=== PATIENT | female | born 1985 | race American Indian/Alaskan Native ===

== ENCOUNTER 2016-05-03 18:22 | Emergency (ER) | payer MEDICAID ==
[2016-05-03 18:22] VITALS: BMI 39.6
[2016-05-03] MEDS ORDERED: Sodium Chloride 0.9% 1,000 ML IV ONE (20:47)
[2016-05-03] MEDS ORDERED: Sodium Chloride 0.9% 1,000 ML ONE (20:56)
[2016-05-03 21:01] LABS: BASO # 0.1 K/uL (0.0-0.2); BASO % 0.6 % (0.0-2.0); EOS # 0.1 K/uL (0.0-0.7); EOS % 1.1 % (0.0-4.0); HEMATOCRIT 36.6 % (34.0-47.0); LYMPH # 3.3 K/uL (1.0-4.3); LYMPH % 27.3 % (20.0-40.0); MEAN CELL VOLUME 83.2 fL (81.0-99.0); MEAN CORPUSCULAR HEMOGLOBIN 27.3 pg (27.0-31.0); MEAN CORPUSCULAR HGB CONC 32.8 g/dL (33.0-37.0); MEAN PLATELET VOLUME 10.3 fL (7.2-11.7); MONO # 0.9 K/uL (0.0-0.8); MONO % 7.4 % (0.0-10.0); NRBC % 0.1 % (0.0-2.0); RED CELL DISTRIBUTION WIDTH 14.6 % (11.5-14.5)
[2016-05-03 21:05] LABS: RBC URINE < 1 /hpf (0-3); URINE BILIRUBIN NEGATIVE (NEGATIVE); URINE BLOOD NEGATIVE (NEGATIVE); URINE COLOR Yellow (YELLOW); URINE GLUCOSE (UA) NORMAL (Normal); URINE KETONE NEGATIVE (NEGATIVE); URINE LEUKOCYTE ESTERASE NEG Leu/uL (Negative); URINE PROTEIN NEGATIVE (NEGATIVE); WBC URINE < 1 /hpf (0-5)
[2016-05-03 21:07] LABS: CHLORIDE 98 mmol/L (98-107); POTASSIUM 3.7 mmol/L (3.6-5.2); SODIUM 137 mmol/L (132-148)
[2016-05-03 21:10] LABS: ALB/GLOB RATIO 1.1 (1.0-2.1); ALKALINE PHOSPHATASE 45 U/L (38-126); ALT/SGPT 16 U/L (9-52); AST/SGOT 18 U/L (14-36); BILIRUBIN,TOTAL 0.3 mg/dL (0.2-1.3); BLOOD UREA NITROGEN 14 mg/dL (7-17); CALCIUM 8.3 mg/dl (8.6-10.4); CARBON DIOXIDE 24 mmol/L (22-30); GFR AFRICAN-AMERICAN > 60; GLUCOSE,RANDOM 89 mg/dL (65-105); TOTAL PROTEIN 7.6 g/dL (6.3-8.3)
[2016-05-03 23:17] VITALS: BP 116/84; PULSE 69; RESP 22; TEMP 98; O2SAT 99
[2016-05-03] MEDS ORDERED: Iohexol 240 (50 ml) PO STA (23:25)
[2016-05-03] MEDS ORDERED: Iohexol 240 (50 ml) ONE (23:32)
[2016-05-03] MEDS ORDERED: Morphine 4 MG/ML VIAL ONE (23:32)
--- NOTE | 2016-05-03 23:54 | C.PDOC ---
Time Seen by Provider: 05/03/16 20:26 Chief Complaint (Nursing): Abdominal Pain History Per: Patient Onset/Duration Of Symptoms: Days, Intermittent Episodes Current Symptoms Are (Timing): Still Present Severity: Moderate Location Of Pain/Discomfort: Other (Left mid abdomen) Radiation Of Pain To:: Flank Quality Of Discomfort: "Pain" Alleviating Factors: None Additional History Per: Prior Records Abnormal Vaginal Bleeding: No Past Medical History Reviewed: Historical Data, Nursing Documentation, Vital Signs Vital Signs: Last Vital Signs Temp 98 F 05/03/16 23:16 Pulse 69 05/03/16 23:16 Resp 22 05/03/16 23:16 BP 116/84 05/03/16 23:16 Pulse Ox 99 05/03/16 23:16 - Medical History PMH: Hypercholesterolemia Surgical History: No Surg Hx - [facility] Procedures CLOSURE SKIN & SUBCUTANEOUS NEC (12/13/13) EXTRACTION OF POC, LOW CERVICAL, OPEN APPROACH (06/04/15) OCCLUSION OF BILATERAL FALLOPIAN TUBES, OPEN APPROACH (06/04/15) TETANUS TOXOID ADMINIST (12/13/13) Family History: States: Unknown Family Hx - Social History Hx Tobacco Use: No Hx Alcohol Use: No Hx Substance Use: No - Immunization History Hx Tetanus Toxoid Vaccination: No Hx Influenza Vaccination: No Hx Pneumococcal Vaccination: No Review Of Systems Except As Marked, All Systems Reviewed And Found Negative. Constitutional: Negative for: Fever, Weakness Cardiovascular: Negative for: Chest Pain Respiratory: Negative for: Shortness of Breath Gastrointestinal: Positive for: Abdominal Pain. Negative for: Vomiting, Diarrhea, Melena, Hematochezia, Hematemesis, Rectal Pain Genitourinary: Negative for: Dysuria, Vaginal Discharge, Vaginal Bleeding, Pelvic Pain Musculoskeletal: Negative for: Neck Pain, Back Pain Skin: Negative for: Rash Neurological: Negative for: Weakness, Numbness, Seizures, Altered Mental Status Physical Exam - Physical Exam Appears: Non-toxic, No Acute Distress Skin: Normal Color, Warm, Dry, No Rash Head: Atraumatic, Normacephalic Eye(s): bilateral: PERRL, EOMI Neck: Normal ROM, Supple Cardiovascular: Rhythm Regular Respiratory: Normal Breath Sounds, No Accessory Muscle Use Gastrointestinal/Abdominal: Soft, Tenderness (left flank area), No Guarding, No Rebound Back: No CVA Tenderness Extremity: Normal ROM Neurological/Psych: Oriented x3, Normal Motor, Normal Sensation ED Course And Treatment - Laboratory Results Result Diagrams: 05/03/16 20:54 05/03/16 20:54 Lab Interpretation: No Acute Changes Urine POC: Negative O2 Sat by Pulse Oximetry: 99 Pulse Ox Interpretation: Normal Progress Note: Pt feels a little better, but still has the pain. I wanted to order a CT scan of abdomen/pelvis, but pt refused. She wants to go home right now. Progress - Interventions Interventions:: Observation, Intravenous fluid - Medications Administered Intravenous: NSAID - Data Reviewed Data Reviewed: Lab, Old records - Patient Status Patient status: Partially improved - Continuity of Care Discussed patient case with:: Patient, ED Nurse - Patient Plan Patient Plan: Discharge, F/U with PCP Disposition Counseled Patient/Family Regarding: Studies Performed, Diagnosis, Need For Followup, Rx Given - Disposition Referrals: Shaun Monae MD [Staff Provider] - Disposition: HOME/ ROUTINE Disposition Time: 23:57 Condition: STABLE Additional Instructions: Follow up with your doctor this week. Follow up with a Lead Janitor for further evaluation and treatment, including possible colonoscopy. Return to the ER if you develop fever, vomiting, bloody stools, trouble urinating, worsening of symptoms or if you have any other concerns. Prescriptions: Polyethylene Glycol 3350 [Miralax] 17 gm PO DAILY #7 packet Instructions: Flank Pain (ED) Print Language: MEXICAN - Clinical Impression Clinical Impression: Left flank pain
--- NOTE | 2016-05-04 11:15 | RAD ---
HISTORY: Left sided abdominal pain COMPARISON: No prior. FINDINGS: BOWEL: There is moderate amount of stool scattered in the colon. There is nonobstructive bowel gas pattern. BONES: Normal. OTHER FINDINGS: There are no pathologic soft tissue calcifications. There are multiple phleboliths in the pelvis. IMPRESSION: Constipation. Nonobstructive bowel gas pattern.
== END 2016-05-04 | disposition home or self-care (01) ==
LOC: C.ER 18:22
DX: R10.9 Unspecified abdominal pain (principal)
CPT/HCPCS: 74000; 80053; 81001; 83690; 84703; 85025; 96361; 96374; 99285; J1885; J7040

== ENCOUNTER 2016-08-27 14:18 | Inpatient (IN) | payer MEDICAID ==
[2016-08-27 14:19] VITALS: BMI 39.6
[2016-08-27] MEDS ORDERED: Sodium Chloride 0.9% 1,000 ML IV ONE ×2 (14:41→18:51)
[2016-08-27] MEDS ORDERED: HYDROmorphone 0.5 mg/0.5 ml ISec IVP STA (14:43)
--- NOTE | 2016-08-27 14:43 | C.PDOC ---
History Of Present Illness <Artie Sims - Last Filed: 08/27/16 23:04> <Juni Gusman Jr. - Last Filed: 08/29/16 15:25> Patient is a 30-year-old female, PMHx includes Eczema, presents to the emergency department with complaints of abdominal pain. Patient states she has been experiencing generalized abdominal pain, greater in right-upper quadrant, for the past several weeks. Pain is worse with eating, intermittent in nature, and sometimes radiates to back. Patient notes that she was seen in [facility] Emergency Dept two days ago, where she had both a CT scan and Ultrasound, which was "normal." Patient was discharged with Rx for Pepcid, that she has been taking with minimal relief. Patient reports one episode of non- bilious/non-bloody vomiting. States her pain has persisted, resulting in her coming to the ED for further evaluation. Denies fevers, diarrhea, dizziness, vaginal bleeding/discharge, hematuria, dysuria, headache, or any other associated symptoms. No other complaints at this time. PMD Wilbert May MD. (Juni Gusman Jr.) <Artie Sims - Last Filed: 08/27/16 23:04> History Per: Patient History/Exam Limitations: no limitations Onset/Duration Of Symptoms: Days Current Symptoms Are (Timing): Still Present Severity: Moderate Pain Scale Rating Of: 7 Location Of Pain/Discomfort: Diffuse, RUQ Radiation Of Pain To:: Back Associated Symptoms: Vomiting Exacerbating Factors: Other (Eating) <Juni Gusman Jr. - Last Filed: 08/29/16 15:25> Time Seen by Provider: 08/27/16 14:31 Chief Complaint (Nursing): Abdominal Pain Past Medical History Reviewed: Historical Data, Nursing Documentation, Vital Signs - Medical History PMH: Hypercholesterolemia Other PMH: Eczema Family History: States: CAD, Diabetes - Social History Hx Tobacco Use: No Hx Alcohol Use: Yes (Occaisonal, social.) Hx Substance Use: No - Immunization History Hx Tetanus Toxoid Vaccination: No Hx Influenza Vaccination: No Hx Pneumococcal Vaccination: No <Juni Gusman Jr. - Last Filed: 08/29/16 15:25> Vital Signs: Last Vital Signs Temp 97 F L 08/29/16 08:00 Pulse 59 L 07/24/17 08:00 Resp 20 08/29/16 08:00 BP 123/84 08/29/16 08:00 Pulse Ox 99 08/29/16 00:00 - [facility] Procedures CLOSURE SKIN & SUBCUTANEOUS NEC (12/13/13) EXTRACTION OF POC, LOW CERVICAL, OPEN APPROACH (06/04/15) OCCLUSION OF BILATERAL FALLOPIAN TUBES, OPEN APPROACH (06/04/15) TETANUS TOXOID ADMINIST (12/13/13) Review Of Systems Except As Marked, All Systems Reviewed And Found Negative. Constitutional: Negative for: Fever Cardiovascular: Negative for: Chest Pain Respiratory: Negative for: Cough, Shortness of Breath Gastrointestinal: Positive for: Vomiting, Abdominal Pain. Negative for: Diarrhea, Constipation Genitourinary: Negative for: Dysuria, Frequency, Hematuria, Vaginal Discharge, Vaginal Bleeding Neurological: Negative for: Weakness, Numbness, Headache, Dizziness <Juni Gusman Jr. - Last Filed: 08/29/16 15:25> Physical Exam - Physical Exam Appears: Non-toxic, No Acute Distress Skin: Warm, Dry, No Rash Head: Atraumatic, Normacephalic Eye(s): bilateral: Normal Inspection, EOMI Ear(s): Bilateral: Normal Nose: Normal Oral Mucosa: Moist Lips: Normal Appearing Teeth: Normal Dentition Throat: Normal Neck: Normal ROM Lymphatic: Deferred Cardiovascular: Rhythm Regular, No Murmur Respiratory: Normal Breath Sounds, No Accessory Muscle Use Gastrointestinal/Abdominal: Bowel Sounds, Soft, Tenderness (LUQ>RUQ, Epigastric , mild.), No Guarding, No Rebound Extremity: Normal ROM Neurological/Psych: Oriented x3, Normal Speech <Juni Gusman Jr. - Last Filed: 08/29/16 15:25> ED Course And Treatment - Laboratory Results Result Diagrams: 08/27/16 14:54 08/27/16 14:54 <Artie Sims - Last Filed: 08/27/16 23:04> - Laboratory Results Result Diagrams: 08/29/16 11:38 08/29/16 11:38 O2 Sat by Pulse Oximetry: 98 <Juni Gusman Jr. - Last Filed: 08/29/16 15:25> Medical Decision Making <Artie Sims - Last Filed: 08/27/16 23:04> <Juni Gusman Jr. - Last Filed: 08/29/16 15:25> Medical Decision Making: pt endorsed to me pending reassessment s/p zofran, analgesia. upon reassessment , pt reports persistent symptoms. pt does not feel well to go home. pt with diffuse ttp. ct added. ct shows no acute disease. case discussed with dr dwyer. accepts as obs (Artie Sims) Impression Undifferentiated Abdominal Pain Diff Dx (includes but not limited to) Peptic Ulcer Disease vs Gall Stones vs GERD vs Food Allergy Plan: * CMP, Lipase * CBC * Dilaudid, pepcid, IVF * HCG, UA * Reassess and Disposition Progress: 6:52 PM - Patient very nauseous and with vomiting after dilaudid. Just gave additional dose of Zofran. Because pt is still symptomatic, will place in Observation status for now until symptoms improve. Will also give additional IV fluids. (Juni Gusman Jr.) ED OBSERVATION <Artie Sims - Last Filed: 08/27/16 23:04> Date of observation admission: 08/27/16 Time of observation admission: 18:53 <Juni Gusman Jr. - Last Filed: 08/29/16 15:25> - Observation admission statement Patient is being placed in observation because:: Pt is vomiting and symptomatic. Will give iv fluids and more Zofran (Juni Gusman Jr.) - Goals of Observation Goals of observation are:: Improvement of symptoms (Juni Gusman Jr.) Disposition - Disposition Disposition Time: 23:04 <Artie Sims - Last Filed: 08/27/16 23:04> <Juni Gusman Jr. - Last Filed: 08/29/16 15:25> - Disposition Disposition: HOME/ ROUTINE Condition: STABLE - Clinical Impression Clinical Impression: Intractable vomiting, Abdominal pain <Artie Sims - Last Filed: 08/27/16 23:04> - Scribe Statement The provider has reviewed the documentation as recorded by the Scribe (Noreen Hogue) <Juni Gusman Jr. - Last Filed: 08/29/16 15:25> - Scribe Statement All medical record entries made by the Scribe were at my direction and personally dictated by me. I have reviewed the chart and agree that the record accurately reflects my personal performance of the history, physical exam, medical decision making, and the department course for this patient. I have also personally directed, reviewed, and agree with the discharge instructions and disposition. (Juni Gusman Jr.) Physician Patient Turnover Patient Signed Over To: Artie Sims Handoff Comments: To Reassess patients after fluids and IV zofran and d/c home if feeling better. <Juni Gusman Jr. - Last Filed: 08/29/16 15:25> Decision To Admit - Pt Status Changed To: Hospital Disposition Of: Observation - . Bed Request Type: Regular Admitting Physician: Glenn Dwyer <Artie Sims - Last Filed: 08/27/16 23:04> <Juni Gusman Jr. - Last Filed: 08/29/16 15:25> - . Patient Diagnosis: Intractable vomiting, Abdominal pain
[2016-08-27] MEDS ORDERED: Sodium Chloride 0.9% 1,000 ML ONE (14:58)
[2016-08-27 15:01] LABS: BASO # 0.1 K/uL (0.0-0.2); EOS # 0.1 K/uL (0.0-0.7); EOS % 1.4 % (0.0-4.0); HEMATOCRIT 36.5 % (34.0-47.0); LYMPH # 2.7 K/uL (1.0-4.3); LYMPH % 29.1 % (20.0-40.0); MEAN CELL VOLUME 83.4 fL (81.0-99.0); MEAN CORPUSCULAR HEMOGLOBIN 26.9 pg (27.0-31.0); MEAN CORPUSCULAR HGB CONC 32.3 g/dL (33.0-37.0); MEAN PLATELET VOLUME 9.4 fL (7.2-11.7); MONO # 0.7 K/uL (0.0-0.8); MONO % 7.6 % (0.0-10.0); NRBC % 0.1 % (0.0-2.0); RED CELL DISTRIBUTION WIDTH 14.2 % (11.5-14.5); WHITE BLOOD COUNT 9.3 K/uL (4.8-10.8)
[2016-08-27 15:08] LABS: CHLORIDE 100 mmol/L (98-107); POTASSIUM 3.8 mmol/L (3.6-5.2); SODIUM 138 mmol/L (132-148)
[2016-08-27 15:10] LABS: BILIRUBIN,TOTAL 0.4 mg/dL (0.2-1.3); CARBON DIOXIDE 29 mmol/L (22-30); GFR AFRICAN-AMERICAN > 60
[2016-08-27 15:11] LABS: ALKALINE PHOSPHATASE 49 U/L (38-126); ALT/SGPT 22 U/L (9-52); AST/SGOT 19 U/L (14-36); BLOOD UREA NITROGEN 11 mg/dL (7-17); CALCIUM 8.3 mg/dl (8.6-10.4); GLUCOSE,RANDOM 90 mg/dL (65-105); TOTAL PROTEIN 7.5 g/dL (6.3-8.3)
[2016-08-27] MEDS ORDERED: Sucralfate 1 gm/10 ml Oral Susp UD PO STA (15:36)
[2016-08-27] MEDS ORDERED: Sucralfate 1 gm/10 ml Oral Susp UD ONE (15:43)
[2016-08-27 15:59] LABS: RBC URINE < 1 /hpf (0-3); URINE BILIRUBIN NEGATIVE (NEGATIVE); URINE BLOOD NEGATIVE (NEGATIVE); URINE COLOR Straw (YELLOW); URINE GLUCOSE (UA) NORMAL (Normal); URINE KETONE NEGATIVE (NEGATIVE); URINE LEUKOCYTE ESTERASE NEG Leu/uL (Negative); URINE PROTEIN NEGATIVE (NEGATIVE); URINE UROBILINOGEN NORMAL mg/dL (0.2-1.0); WBC URINE < 1 /hpf (0-5)
[2016-08-27] MEDS ORDERED: HYDROmorphone 1 mg/ml ISec IVP STA (16:12)
[2016-08-27] MEDS ORDERED: Iodixanol 320 MG/ML 100 ML BOTTLE IV ONE (20:35)
[2016-08-27] MEDS ORDERED: Aluminum Hydroxide/Magnesium Hydroxide Susp (30 mL) PO STA (20:55)
[2016-08-27] MEDS ORDERED: Aluminum Hydroxide/Magnesium Hydroxide Susp (30 mL) ONE (21:46)
--- NOTE | 2016-08-27 22:27 | CT ---
EXAM: CT Abdomen and Pelvis With Intravenous Contrast CLINICAL HISTORY: 30 years old, female; Pain; Abdominal pain; Generalized; Additional info: Abd pain TECHNIQUE: Axial computed tomography images of the abdomen and pelvis with intravenous contrast. This CT exam was performed using one or more of the following dose reduction techniques: automated exposure control, adjustment of the mA and/or kV according to patient size, and/or use of iterative reconstruction technique. Coronal reformatted images were created and reviewed. CONTRAST: 100 mL of visipaque administered intravenously. COMPARISON: CT - ABD PELVIS IV CONTRAST ONLY 01/12/2016 2:22:50 AM FINDINGS: Lower thorax: Small hiatal hernia. ABDOMEN: Liver: Hepatomegaly. Gallbladder and bile ducts: Unremarkable. No calcified stones. No ductal dilation. Pancreas: Unremarkable. No mass. No ductal dilation. Spleen: Unremarkable. No splenomegaly. Adrenals: Unremarkable. No mass. Kidneys and ureters: Unremarkable. No solid mass. No hydronephrosis. Stomach and bowel: Unremarkable. No obstruction. Appendix: No findings to suggest acute appendicitis. PELVIS: Bladder: Unremarkable. No mass. Reproductive: Unremarkable as visualized. ABDOMEN and PELVIS: Intraperitoneal space: Trace free fluid in pelvis. No free air. Bones/joints: No acute fracture. No dislocation. Soft tissues: Unremarkable. Vasculature: Unremarkable. No abdominal aortic aneurysm. Lymph nodes: Unremarkable. No enlarged lymph nodes. IMPRESSION: 1. Trace fluid in pelvis. 2. Small hiatal hernia. 3. Hepatomegaly. 4. Remainder of findings as above.
[2016-08-27] MEDS: Dextrose 5%/0.45% NS 1,000 ML IV SCH (23:26)
[2016-08-28 18:23] LABS: AMYLASE 55 U/L (30-110)
[2016-08-28] MEDS: Dextrose 5%/0.45% NS 1,000 ML IV SCH (19:50)
--- NOTE | 2016-08-29 02:28 | HP ---
HISTORY OF PRESENT ILLNESS: The patient is 30-year-old female has chief complaints of weakness, fatigue, tiredness, nausea, vomiting, and abdominal pain. The patient came to the ER, advised admission. PHYSICAL EXAMINATION: GENERAL: The patient is awake, alert, and oriented. VITAL SIGNS: Temperature 98, pulse 90. HEENT: Within normal limits. NECK: Supple. CHEST: Symmetrical. HEART: Regular. ABDOMEN: Soft. EXTREMITIES: No edema. IMPRESSION AND PLAN: History of gastritis, peptic ulcer disease. The patient on bedrest, supportive care. Glenn Dwyer MD
[2016-08-29 11:56] LABS: BASO # 0.1 K/uL (0.0-0.2); BASO % 0.8 % (0.0-2.0); EOS # 0.1 K/uL (0.0-0.7); EOS % 1.3 % (0.0-4.0); HEMATOCRIT 35.7 % (34.0-47.0); LYMPH # 2.4 K/uL (1.0-4.3); LYMPH % 31.7 % (20.0-40.0); MEAN CELL VOLUME 82.4 fL (81.0-99.0); MEAN CORPUSCULAR HEMOGLOBIN 27.1 pg (27.0-31.0); MEAN CORPUSCULAR HGB CONC 32.9 g/dL (33.0-37.0); MEAN PLATELET VOLUME 9.2 fL (7.2-11.7); MONO # 0.6 K/uL (0.0-0.8); RED CELL DISTRIBUTION WIDTH 14.4 % (11.5-14.5); WHITE BLOOD COUNT 7.7 K/uL (4.8-10.8)
[2016-08-29 12:14] LABS: CHLORIDE 102 mmol/L (98-107); SODIUM 140 mmol/L (132-148)
[2016-08-29 12:15] LABS: POTASSIUM 3.9 mmol/L (3.6-5.2)
[2016-08-29 12:17] LABS: ALKALINE PHOSPHATASE 44 U/L (38-126); ALT/SGPT 20 U/L (9-52); AST/SGOT 18 U/L (14-36); BILIRUBIN,TOTAL 0.5 mg/dL (0.2-1.3); BLOOD UREA NITROGEN 6 mg/dL (7-17); CALCIUM 8.3 mg/dl (8.6-10.4); CARBON DIOXIDE 27 mmol/L (22-30); GFR AFRICAN-AMERICAN > 60; GLUCOSE,RANDOM 85 mg/dL (65-105); TOTAL PROTEIN 6.9 g/dL (6.3-8.3)
--- NOTE | 2016-08-29 13:55 | CP.PCM.PN ---
Subjective - Date & Time of Evaluation Date of Evaluation: 08/29/16 Time of Evaluation: 13:52 - Subjective Subjective: PGY [address] Dwyer 30 year old female with past medical history of glucose intolerance and HLD is admitted for intractable epigastric pain, N/V. Pt is seen and examined at bedside. No acute events overnight. Patient is still c/o of diffuse abd pain. She denies having any N/V. She is tolerating liquid diet. Patient denies having any CP, SOB, F/c. Patient states her last BM was 4 days ago. She normally has 1 BM daily. 12 point ROS are negative except for the above mentioned. Sx; C section NKDA Social: Denies ETOH, drug or tobacco use Objective - Vital Signs/Intake and Output Vital Signs (last 24 hours): Temp Pulse Resp BP Pulse Ox 97 F L 59 L 20 123/84 99 08/29/16 08:00 08/29/16 08:00 08/29/16 08:00 08/29/16 08:00 08/29/16 00:00 Intake and Output: 08/29/16 08/29/16 06:59 18:59 Intake Total 1340 Balance 1340 - Medications Medications: Current Medications Famotidine (Pepcid) 20 mg PO DAILY [facility] Dextrose/Sodium Chloride (Dextrose 5%/0.45% Ns 1000 Ml) 1,000 mls @ 50 mls/hr IV .Q20H [facility]ISA[facility] Last Admin: 08/28/16 19:50 Dose: 50 mls/hr Ondansetron HCl (Zofran Inj) 4 mg IVP Q6 PRN PRN Reason: Nausea/Vomiting Polyethylene Glycol (Miralax) 17 gm PO DAILY [facility] - Labs Labs: 08/29/16 11:38 08/29/16 11:38 - Constitutional Appears: Non-toxic, No Acute Distress - Head Exam Head Exam: ATRAUMATIC - Eye Exam Eye Exam: EOMI - ENT Exam ENT Exam: Mucous Membranes Moist - Respiratory Exam Respiratory Exam: Clear to Ausculation Bilateral, NORMAL BREATHING PATTERN. absent: Accessory Muscle Use, Rales, Rhonchi, Wheezes, Respiratory Distress - Cardiovascular Exam Cardiovascular Exam: REGULAR RHYTHM, +S1, +S2. absent: Gallop, Rubs, Murmur - GI/Abdominal Exam GI & Abdominal Exam: Soft, Normal Bowel Sounds. absent: Distended, Firm, Guarding, Rigid, Tenderness, Organomegaly - Extremities Exam Extremities Exam: absent: Pedal Edema, Tenderness - Neurological Exam Neurological Exam: Alert, Awake, Oriented x3 - Psychiatric Exam Psychiatric exam: Normal Affect, Normal Mood - Skin Skin Exam: Dry, Intact, Normal Color, Warm Assessment and Plan - Assessment and Plan (Free Text) Assessment: 30 year old female with past medical history of glucose intolerance and HLD is admitted for intractable abd pain. CT abd on admission showed trace fluid in pelvis, small hiatal hernia and hepatomegaly, no appendicitis. Intractable abd pain - Abd US ordered- F/U results - CLD- Will advance diet as tolerated - Pain management with Motrin prn - D5 at 50 cc Hepatomegal - Hepatitis panel is negative - will check lipid panel, hgb A1c Prophylaxis - Pepcid - SCDs Orders and management per Dr. Dwyer
--- NOTE | 2016-08-29 14:02 | US ---
HISTORY: epigastric pain COMPARISON: CT of the abdomen and pelvis with IV contrast performed 08/27/16 TECHNIQUE: Sonographic evaluation of the abdomen. FINDINGS: LIVER: Measures 20.0 cm in sagittal dimension. Echogenic focus within the right hepatic lobe measures approximately 0.7 x 0.6 x 0.6 cm, indeterminate, possibly small hemangioma. The main portal vein appears patent with normal directional flow. No intrahepatic bile duct dilatation. GALLBLADDER: No gallstones. No gallbladder wall thickening. Negative sonographic Schroeder's sign as assessed by the parachute marker. COMMON BILE DUCT: Measures 4 mm. PANCREAS: Not well visualized. RIGHT KIDNEY: Measures 10.6 x 4.2 x 5.2 cm. No obstructing calculus or hydronephrosis identified. LEFT KIDNEY: Measures 11.5 x 6.8 x 5.5 cm. No obstructing calculus or hydronephrosis identified. SPLEEN: Measures approximately 10.3 cm. AORTA: Limited views appear unremarkable. IVC: Limited views appear unremarkable. OTHER FINDINGS: None. IMPRESSION: Hepatomegaly. Echogenic focus within the right hepatic lobe measures approximately 0.7 x 0.6 x 0.6 cm, indeterminate, possibly small hemangioma. Cross-sectional imaging may be considered for further evaluation if indicated.
[2016-08-29] MEDS: POLYETHYLENE GLYCOL 3350 17 GM/Dose PACKET PO SCH (14:03)
[2016-08-29 14:58] LABS: INR 1.1
--- NOTE | 2016-08-29 15:05 | PN ---
DATE: LOCATION: [facility], bed B. SUBJECTIVE: This is a 30-year-old female seen for GI consultation initially on 08/28/2016, reexamined again today with less abdominal pain, but intermittent period of nausea and vomiting with dyspepsia and generalized weakness and malaise as well as recent change of bowel movement habit. CAT scan of the abdomen, results are seen. The entire chart is reviewed including, but not limited to the most recent lab and radiological results, current and previous medication list, current and previous medical events, and the patient's CBC today was normal with low BUN and low calcium of 8.3, but normal lipase and amylase level and normal liver function tests. Patient admitted sometimes alcohol intake, and as requested by myself, the hepatic profile was reported to be negative. PHYSICAL EXAMINATION: GENERAL: A 30 years old female. VITAL SIGNS: Afebrile with pulse 62, respiratory rate 18-20 with blood pressure of 118/80. HEENT: Showed mildly dry oral mucous membrane. Nonicteric sclerae. LUNGS: Clear. Breathing sounds are present bilaterally. HEART: Positive S1, S2. ABDOMEN: Soft, mildly obese with midepigastric as well as left and right lower quadrant tenderness. No mass or organomegaly. No rebound tenderness or guarding. RECTAL: The patient refused. EXTREMITIES: Without edema, clubbing or cyanosis. BACK: With evidence of eczema. NEUROLOGIC: No neurological deficits, sensory or motor. IMPRESSION: 1. Re-exacerbation of peptic ulcer disease, rule out gastric versus duodenal ulcer. 2. Hepatomegaly with unclear etiology, patient for ultrasound of the abdomen. That could be alcohol induced. 3. Known history of hyperlipidemia. 4. A strong family history of colon cancer including her grandmother. SUGGESTION: 1. Agree with your plan. 2. Reglan IV. 3. Patient for upper endoscopy at a.m. Further recommendations to follow. Pooja Schumacher MD
[2016-08-29] MEDS: Dextrose 5%/0.45% NS 1,000 ML IV SCH (15:53)
[2016-08-29 16:08] LABS: CHOLESTEROL 196 mg/dL (0-199)
[2016-08-30] MEDS: Dextrose 5%/0.45% NS 1,000 ML IV SCH (06:04)
[2016-08-30 06:53] LABS: BASO # 0.1 K/uL (0.0-0.2); BASO % 0.8 % (0.0-2.0); EOS # 0.1 K/uL (0.0-0.7); EOS % 1.5 % (0.0-4.0); HEMATOCRIT 37.2 % (34.0-47.0); LYMPH # 2.8 K/uL (1.0-4.3); LYMPH % 34.1 % (20.0-40.0); MEAN CELL VOLUME 82.5 fL (81.0-99.0); MEAN CORPUSCULAR HEMOGLOBIN 27.5 pg (27.0-31.0); MEAN CORPUSCULAR HGB CONC 33.3 g/dL (33.0-37.0); MEAN PLATELET VOLUME 9.6 fL (7.2-11.7); MONO # 0.7 K/uL (0.0-0.8); MONO % 8.1 % (0.0-10.0); NRBC % 0.1 % (0.0-2.0); RED CELL DISTRIBUTION WIDTH 14.2 % (11.5-14.5); WHITE BLOOD COUNT 8.3 K/uL (4.8-10.8)
[2016-08-30 07:01] LABS: ALKALINE PHOSPHATASE 44 U/L (38-126); ALT/SGPT 19 U/L (9-52); AST/SGOT 14 U/L (14-36); BILIRUBIN,TOTAL 0.5 mg/dL (0.2-1.3); BLOOD UREA NITROGEN 7 mg/dL (7-17); CALCIUM 8.2 mg/dl (8.6-10.4); CARBON DIOXIDE 27 mmol/L (22-30); CHLORIDE 102 mmol/L (98-107); GFR AFRICAN-AMERICAN > 60; GLUCOSE,RANDOM 92 mg/dL (65-105); POTASSIUM 3.8 mmol/L (3.6-5.2); SODIUM 142 mmol/L (132-148); TOTAL PROTEIN 6.8 g/dL (6.3-8.3)
[2016-08-30] MEDS ORDERED: Propofol 10 mg/ml Inj (20 ML) ONE (10:04)
[2016-08-30 10:31] VITALS: TEMP 97.8; O2SAT 100
[2016-08-30 11:00] VITALS: BP 136/86; PULSE 61; RESP 14
[2016-08-30] MEDS: POLYETHYLENE GLYCOL 3350 17 GM/Dose PACKET PO SCH (12:53)
--- NOTE | 2016-08-30 13:24 | CP.PCM.PN ---
Subjective - Date & Time of Evaluation Date of Evaluation: 08/30/16 Time of Evaluation: 13:15 - Subjective Subjective: PGY3 Medicine Note for Dr. Dwyer: Patient seen and examined at bedside s/p endoscopy this AM. P atient reports persistent abdominal pain. Patient denies nausea and vomiting today or yesterday. Patient tolerating full liquid diet. Objective - Vital Signs/Intake and Output Vital Signs (last 24 hours): Temp Pulse Resp BP Pulse Ox 97.8 F 61 14 136/86 100 08/30/16 10:38 08/30/16 10:38 08/30/16 10:38 08/30/16 10:38 08/30/16 10:38 Intake and Output: 08/30/16 08/30/16 06:59 18:59 Intake Total 1100 525 Balance 1100 525 - Medications Medications: Current Medications Belladonna/Phenobarbital () 1 tab PO TID [facility] Famotidine (Pepcid) 20 mg PO DAILY [facility] Last Admin: 08/30/16 12:54 Dose: Not Given Dextrose/Sodium Chloride (Dextrose 5%/0.45% Ns 1000 Ml) 1,000 mls @ 50 mls/hr IV .Q20H [facility] Last Admin: 08/30/16 06:04 Dose: 50 mls/hr Ibuprofen (Motrin Tab) 600 mg PO TID [facility] Last Admin: 08/30/16 12:53 Dose: Not Given Ondansetron HCl (Zofran Inj) 4 mg IVP Q6 PRN PRN Reason: Nausea/Vomiting Polyethylene Glycol (Miralax) 17 gm PO DAILY [facility] Last Admin: 08/30/16 12:53 Dose: Not Given Sucralfate (Carafate Tab) 1 gm PO ACBHS [facility] - Labs Labs: 08/30/16 06:32 08/30/16 06:32 PT 12.4 SECONDS (9.7-12.2) H 08/29/16 14:34 INR 1.1 08/29/16 14:34 APTT 34 SECONDS (21-34) 08/29/16 14:34 - Constitutional Appears: Non-toxic, No Acute Distress - Head Exam Head Exam: NORMAL INSPECTION - Eye Exam Eye Exam: EOMI - ENT Exam ENT Exam: Mucous Membranes Moist - Respiratory Exam Respiratory Exam: Clear to Ausculation Bilateral, NORMAL BREATHING PATTERN. absent: Rales, Rhonchi, Wheezes - Cardiovascular Exam Cardiovascular Exam: REGULAR RHYTHM, +S1, +S2. absent: Gallop, Rubs, Murmur - GI/Abdominal Exam GI & Abdominal Exam: Guarding, Soft, Tenderness, Normal Bowel Sounds - Extremities Exam Extremities Exam: absent: Pedal Edema - Neurological Exam Neurological Exam: Alert, Awake, Oriented x3 - Psychiatric Exam Psychiatric exam: Normal Affect, Normal Mood - Skin Skin Exam: Normal Color, Warm Assessment and Plan - Assessment and Plan (Free Text) Assessment: 30 year old female with past medical history of glucose intolerance and HLD is admitted for intractable abd pain. CT abd on admission showed trace fluid in pelvis, small hiatal hernia and hepatomegaly, no appendicitis. Intractable abd pain - Abd US ordered- hepatomegaly; echogenic focus within right hepatic lobe 0.7x0.6x0.6cm which is possibly a hemangioma (please see full report) - f/u outpatient - Endoscopy today - acute gastritis - CLD- Will advance diet as tolerated - Pain management with Motrin prn - D5 at 50 cc Hepatomegaly - Hepatitis panel is negative - Triglycerides 202, Cholesterol 196, LDL 113, HDL 35 - HgbA1C 5.9 - f/u outpatient for IGT Prophylaxis - Pepcid - SCDs Orders and management per Dr. Dwyer Patient discharged today: Patient to be discharged home per Dr. Dwyer. Patient should take medications as directed below. Patient should make an appointment and follow up with PMD and with GI specialist, Dr. Sanz, within one week. Patient should return to ED immediately if symptoms return or worsen. Medications: 1 tab by mouth three times a day #90 Protonix 40mg one tab by mouth daily #30 Sucralfate 1gm 1 tab by mouth before breakfast and sleep #60 Colace 100mg 1 tab by mouth twice a day #60
[2016-08-30] MEDS ORDERED: Belladonna-Phenobarbital PO SCH (14:00)
--- NOTE | 2016-09-02 10:33 | CON ---
DATE: 08/28/[address] Schumacher to Dr. Glenn Dwyer. HISTORY OF PRESENT ILLNESS: I was called for GI consultation by the admitting medical team. The patient was seen and fully examined on 08/28/[address] Dwyer. Entire chart was reviewed including, but not limited to the most recent lab and radiologic results, current and previous medication list, current and previous medical events, allergy to medication list as well as all the available current and previous medical records. Case discussed at length with the admitting medical staff as well as the staff in the floor. This is 30 years old who was admitted to the hospital with severe complaint of abdominal pain, postprandial abdominal distention, dyspepsia, generalized weakness, and malaise with poor oral intake. No reported active bleeding. Her symptoms were not released by Pepcid intake. It has to be mentioned that the patient had intermittent period of bloody vomit mixed with bile contents at some point. PAST MEDICAL HISTORY: Including, but not limited to eczema, peptic ulcer disease, and hyperlipidemia. CURRENT MEDICATIONS: Medication lists were reviewed. FAMILY HISTORY: Positive for coronary artery disease and diabetes mellitus. SOCIAL HISTORY: Positive for alcohol intake. The patient is status post bilateral tubal ligation. After being admitted to hospital, the patient was found to have normal CBC and normal SMA-7. PHYSICAL EXAMINATION: GENERAL: A 30 years old female complaining of severe abdominal pain mainly in the midepigastric and right upper quadrant area with persistent nausea and dyspepsia. VITAL SIGNS: The patient is afebrile, awake, alert, and oriented with respiratory rate of 20 to 22, blood pressure 110/64, and pulse of 72. HEENT: Showed pale dry oral mucous membrane. Nonicteric sclerae. LYMPH NODES: No lymphadenitis or lymphadenopathy. LUNGS: Scattered crepitations with decreased air entry at bases. HEART: Positive S1 and S2. ABDOMEN: Soft, mildly obese with generalized tenderness, but mainly in the midepigastric and right upper quadrant area. No mass or organomegaly. No rebound tenderness or guarding. RECTAL: The patient refused. EXTREMITIES: Without edema, clubbing,or cyanosis. NEUROLOGIC: No reported neurological deficits, sensory, or motor. IMPRESSION: 1. Re-exacerbation of peptic ulcer disease rule out gastric versus duodenal ulcer. 2. Rule out an early stage of acute pancreatitis. 3. Rule out biliary tree disorder. 4. Known history of, but not limited to hyperlipidemia and eczema with status post bilateral tubal ligation. SUGGESTION: 1. Continue current management. 2. Reglan IV. 3. Abdominal ultrasound. 4. Serum lipase and amylase level. 5. Proton pump inhibitor with IV peritoneal line. 6. Rehydration. 7. Endoscopic evaluation of the upper GI tract when the patient is more stable clinically. Thank you for letting me participate in your patient's case management. Pooja Schumacehr MD
== END 2016-08-30 14:30 | disposition home or self-care (01) | DRG 183 ==
LOC: C.ER 14:18 → C.9OBSV 18:53 → C.9E 22:40 → C.3T 22:47 → OBSVTOIN 08-29 15:02
PROVIDERS: ADMIT Internal Medicine Pulmonary Disease; ATTEND Internal Medicine Pulmonary Disease
PROC: 0DJ08ZZ Inspection of Upper Intestinal Tract, Via Natural or Artificial Opening Endoscopic (ICD-10-PCS; principal; 2016-08-30 09:58)
DX: K29.00 Acute gastritis without bleeding (principal); R16.0 Hepatomegaly, not elsewhere classified; K27.3 Acute peptic ulcer, site unspecified, without hemorrhage or perforation; K29.80 Duodenitis without bleeding; K44.9 Diaphragmatic hernia without obstruction or gangrene; E78.00 Pure hypercholesterolemia, unspecified; E74.39 Other disorders of intestinal carbohydrate absorption; E78.5 Hyperlipidemia, unspecified; Z80.0 Family history of malignant neoplasm of digestive organs

== ENCOUNTER 2017-11-27 16:26 | Emergency (ER) | payer MEDICAID ==
[2017-11-27 16:27] VITALS: BMI 39.6
[2017-11-27 17:09] LABS: BASO # 0.1 K/uL (0.0-0.2); BASO % 0.8 % (0.0-2.0); EOS # 0.1 K/uL (0.0-0.7); EOS % 1.3 % (0.0-4.0); HEMOGLOBIN 12.7 g/dL (11.0-16.0); LYMPH # 2.8 K/uL (1.0-4.3); MEAN CORPUSCULAR HEMOGLOBIN 28.3 pg (27.0-31.0); MEAN CORPUSCULAR HGB CONC 33.7 g/dL (33.0-37.0); MEAN PLATELET VOLUME 9.7 fL (7.2-11.7); MONO # 0.7 K/uL (0.0-0.8); MONO % 6.7 % (0.0-10.0); NEUT # 6.6 K/uL (1.8-7.0); NEUT % 64.2 % (50.0-75.0); NRBC % 0.1 % (0.0-2.0); RBC 4.47 Mil/uL (3.80-5.20); RED CELL DISTRIBUTION WIDTH 14.5 % (11.5-14.5); WHITE BLOOD COUNT 10.3 K/uL (4.8-10.8)
[2017-11-27] MEDS ORDERED: Sodium Chloride 0.9% 1,000 ML IV ONE (17:16)
[2017-11-27 17:17] LABS: HCG,QUALITATIVE URINE NEGATIVE (NEGATIVE)
--- NOTE | 2017-11-27 17:20 | C.PDOC ---
History Of Present Illness 32-year-old female, presents to the emergency department with complaints of epigastric and left-upper quadrant burning, which is worse before eating and 15- 20 minutes after eating. Patient notes symptoms have been persistent for the past 4 days. She admits to nausea, but denies any vomiting, diarrhea, chest pain, shortness of breath or any other associated symptoms. Patient states she had a normal endoscopy "many years ago." No other complaints at this time. Time Seen by Provider: 11/27/17 16:32 Chief Complaint (Nursing): Abdominal Pain History Per: Patient History/Exam Limitations: no limitations Onset/Duration Of Symptoms: Days (4) Current Symptoms Are (Timing): Still Present Past Medical History Reviewed: Historical Data, Nursing Documentation, Vital Signs Vital Signs: Last Vital Signs Temp 98.7 F 11/27/17 16:34 Pulse 66 11/27/17 16:34 Resp 18 11/27/17 16:34 BP 125/78 11/27/17 16:34 Pulse Ox 100 11/27/17 16:34 - Medical History PMH: Hypercholesterolemia - [facility] Procedures CLOSURE SKIN & SUBCUTANEOUS NEC (12/13/13) EXTRACTION OF POC, LOW CERVICAL, OPEN APPROACH (06/04/15) INSPECTION OF UPPER INTESTINAL TRACT, ENDO (08/29/16) OCCLUSION OF BILATERAL FALLOPIAN TUBES, OPEN APPROACH (06/04/15) TETANUS TOXOID ADMINIST (12/13/13) Family History: States: CAD, Diabetes - Social History Hx Tobacco Use: No Hx Alcohol Use: Yes (Occaisonal, social.) Hx Substance Use: No - Immunization History Hx Tetanus Toxoid Vaccination: No Hx Influenza Vaccination: No Hx Pneumococcal Vaccination: No Review Of Systems Constitutional: Negative for: Fever, Chills Cardiovascular: Negative for: Chest Pain Respiratory: Negative for: Shortness of Breath Gastrointestinal: Positive for: Nausea, Abdominal Pain. Negative for: Diarrhea, Constipation Musculoskeletal: Negative for: Back Pain Physical Exam - Physical Exam Appears: Non-toxic, No Acute Distress Skin: Normal Color, Warm, Dry, No Rash Head: Atraumatic, Normacephalic Eye(s): bilateral: Normal Inspection, PERRL, EOMI Nose: Normal Oral Mucosa: Moist Lips: Normal Appearing Neck: Normal ROM Cardiovascular: Rhythm Regular, No Murmur Respiratory: Normal Breath Sounds, No Accessory Muscle Use Gastrointestinal/Abdominal: Soft, Tenderness (epigastric, left-upper quadrant), No Guarding, No Rebound Back: Normal Inspection Extremity: Normal ROM, No Deformity Neurological/Psych: Oriented x3, Normal Speech ED Course And Treatment - Laboratory Results Result Diagrams: 11/27/17 17:06 11/27/17 17:06 O2 Sat by Pulse Oximetry: 100 Pulse Ox Interpretation: Normal (RA) Progress Note: Bloodwork, UA ordered and reviewed. Pt treated with Pepcid and IVFs. Disposition Counseled Patient/Family Regarding: Studies Performed, Diagnosis, Need For Followup, Rx Given - Disposition Referrals: [facility] [Outside] Preet Eason MD [Staff Provider] - Disposition: HOME/ ROUTINE Disposition Time: 18:45 Condition: STABLE Additional Instructions: FOLLOW UP WITH PROFESSOR OF LITERACY WITHIN 1 WEEK USE MEDICATION DAILY AVOID SPICY/ACIDIC FOODS RETURN TO ER IF SYMPTOMS WORSEN Prescriptions: Pantoprazole [Protonix EC Tab] 20 mg PO DAILY #30 ect Instructions: Dyspepsia (DC) Forms: [employer] ([place]ese) Print Language: [place]AN - POA Present On Arrival: None - Clinical Impression Clinical Impression: Dyspepsia, Epigastric abdominal pain - Scribe Statement The provider has reviewed the documentation as recorded by the Scribe (Noreen Hogue) All medical record entries made by the Scribe were at my direction and personally dictated by me. I have reviewed the chart and agree that the record accurately reflects my personal performance of the history, physical exam, medical decision making, and the department course for this patient. I have also personally directed, reviewed, and agree with the discharge instructions and disposition.
[2017-11-27 17:21] LABS: SQUAMOUS EPITHIAL 26 /hpf (0-5); URINE BILIRUBIN NEGATIVE (NEGATIVE); URINE BLOOD NEGATIVE (NEGATIVE); URINE CLARITY Hazy (Clear); URINE COLOR Yellow (YELLOW); URINE GLUCOSE (UA) NORMAL (Normal); URINE LEUKOCYTE ESTERASE NEG Leu/uL (Negative); URINE PROTEIN NEGATIVE (NEGATIVE)
[2017-11-27 17:37] LABS: ALB/GLOB RATIO 1.1 (1.0-2.1); ALBUMIN 4.1 g/dL (3.5-5.0); ALT/SGPT 12 U/L (9-52); AST/SGOT 22 U/L (14-36); BLOOD UREA NITROGEN 10 mg/dL (7-17); CALCIUM 8.9 mg/dl (8.6-10.4); GFR NON-AFRICAN AMERICAN > 60; LIPASE 37 U/L (23-300)
[2017-11-27] MEDS ORDERED: Sodium Chloride 0.9% 1,000 ML ONE (18:28)
[2017-11-27 19:18] VITALS: BP 112/71; PULSE 82; RESP 20; TEMP 98.1; O2SAT 95
== END 2017-11-27 19:32 | disposition home or self-care (01) ==
LOC: C.ER 16:26
DX: R10.13 Epigastric pain (principal)
CPT/HCPCS: 80053; 81001; 83690; 84703; 85025; 96361; 96374; 96375; 99285; J1885; J7030